=== PATIENT | female | born 1960 | race Caucasian/White ===

== ENCOUNTER 2017-08-25 14:01 | Emergency (ER) | payer MEDICARE, MEDICAID ==
[~2017-08-25] VITALS: Ht 152.4 cm; Wt 111.4 kg
[~2017-08-25 14:01] MED LIST: AMITRIPTYLINE H25 M1 PO; BUSPAR; CYMBALTA30 M1 PO; IPRATROPIUM BROM3 M1 IH; LASIX40 M1 PO; NEURONTIN300 M1 PO; POTASSIUM CHLO10 ME7 PO; RELION VEN0.09 MG/Ac IH; ROXICODONE15 M1 PO; TOPAMAX100 MG PO; XANAX0.5 M1 PO
[2017-08-25] MEDS ORDERED: MUCINEX1200 MG PO (16:43)
[2017-08-25] MEDS ORDERED: OXYCODONE HCL10 M1 PO (16:43)
[2017-08-25] MEDS ORDERED: TESSALON PERLE100 M1 PO (16:43)
[2017-08-25 16:53] VITALS: BP 109/75
== END 2017-08-25 16:55 | disposition home or self-care (01) ==
LOC: ED 14:01
DX: S82.831A Other fracture of upper and lower end of right fibula, initial encounter for closed fracture (principal); W01.10XA Fall on same level from slipping, tripping and stumbling with subsequent striking against unspecified object, initial encounter; Y92.007 Garden or yard of unspecified non-institutional (private) residence as the place of occurrence of the external cause; S40.012A Contusion of left shoulder, initial encounter; J06.9 Acute upper respiratory infection, unspecified

== ENCOUNTER 2018-01-05 13:37 | Emergency (ER) | payer MEDICARE, MEDICAID ==
[~2018-01-05 13:37] MED LIST changes: +MUCINEX1200 MG PO; +OXYCODONE HCL10 M1 PO; +TESSALON PERLE100 M1 PO
[2018-01-05 16:34] LABS: EOS # 0.1 (0.04-0.40); EOS % 0.6 % (1.0-5.0); HEMATOCRIT 58.3 % (37.0-47.0); HEMOGLOBIN 17.8 g/dL (12.5-16.0); LYMPH# 1.8 (1.50-4.00); MEAN CELL VOLUME 111 fl (78-100); MEAN CORPUSCULAR HEMOGLOBIN 34 pg (27-31); MEAN CORPUSCULAR HGB CONC 31 g/dL (33-37); MEAN PLATELET VOLUME 11.1 fl (7.4-10.4); MONO # 0.6 (0.20-0.80); NEU # 5.8 (1.40-6.50); PLATELET COUNT 164 K/mm3 (130-400); RED BLOOD COUNT 5.24 M/mm3 (4.10-5.30); RED CELL DISTRIBUTION WIDTH 16.1 % (11.5-14.5); WHITE BLOOD COUNT 8.3 K/mm3 (4.8-10.8)
[2018-01-05 16:47] LABS: ALBUMIN 2.9 g/dL (3.5-5.0); BUN/CREATININE RATIO 18.7 (6.0-26.0); CALCIUM 8.8 mg/dL (8.4-10.2); POTASSIUM 4.5 mmol/L (3.6-5.0); TOTAL BILIRUBIN 0.5 mg/dL (0.2-1.3); TOTAL PROTEIN 6.1 g/dL (6.3-8.2)
[2018-01-05] MEDS ORDERED: RT SPIRIVA INH18 MCG IH (16:50)
[2018-01-05 16:51] LABS: CKMB ISOENZYME 2.7 ng/mL (0.6-3.5)
[2018-01-05 16:55] LABS: TROPONIN-I 0.04 ng/mL (0.00-0.06)
[2018-01-05 17:24] LABS: D-DIMER 2.55 mg/L FEU (0.15-0.50)
[2018-01-05 17:47] LABS: URINE APPEARANCE CLOUDY; URINE BILIRUBIN NEGATIVE (NEGATIVE); URINE COLOR YELLOW; URINE GLUCOSE NEGATIVE (NEGATIVE); URINE KETONE TRACE (NEGATIVE); URINE PROTEIN(semi-quant) 1+ mg/dL (NEGATIVE); URINE UROBILINOGEN 4 mg/dL (NORMAL)
[2018-01-05 17:48] LABS: URINE BLOOD 50 ery/uL (NEGATIVE); URINE LEUKOCYTE ESTERASE TRACE (NEGATIVE); URINE NITRATE NEGATIVE (NEGATIVE)
[2018-01-05 18:59] VITALS: BP 110/65
== END 2018-01-05 19:42 | disposition short-term general hospital (02) ==
LOC: ED 13:37
PROVIDERS: Physician Assistant
DX: I50.9 Heart failure, unspecified (principal); J44.9 Chronic obstructive pulmonary disease, unspecified; R09.02 Hypoxemia; F17.210 Nicotine dependence, cigarettes, uncomplicated; Z86.73 Personal history of transient ischemic attack (TIA), and cerebral infarction without residual deficits; Z79.899 Other long term (current) drug therapy
CPT/HCPCS: J1940; J2930

== ENCOUNTER → 2018-02-10 | Outpatient (CLI) | payer MEDICARE, MEDICAID ==
[~2018-02-10] MED LIST changes: +RT SPIRIVA INH18 MCG IH
[2018-02-10 12:53] LABS: CALCIUM 9.2 mg/dL (8.4-10.2); POTASSIUM 4.3 mmol/L (3.6-5.0)
== END ==
LOC: LAB 12:15
PROVIDERS: Internal Medicine Cardiovascular Disease
DX: I50.9 Heart failure, unspecified (principal)